=== PATIENT | female | born 1950 | race Caucasian/White ===

== ENCOUNTER 2016-09-25 16:55 | Inpatient (IN) | payer MEDICARE, OTHER ==
[~2016-09-25] VITALS: Ht 154.9 cm; Wt 79.5 kg
[~2016-09-25 16:55] MED LIST: AMLO5TAB4 PO; ASPI81TA3 PO; CARI350T29 PO; ESCI10TA PO; FURO-110 PO; LORA-441 PO; LORA-444 PO; OXYC-279 PO; QUET100T PO; ZIPR80CA9 PO; ZOLP5TAB6 PO
[2016-09-25 16:59] VITALS: Ht 154.9 cm; Wt 79.5 kg
[2016-09-25] MEDS ORDERED: ONDANSETRON 4 MG INJ IV STA (20:19)
[2016-09-25] MEDS ORDERED: morphine 4 MG/ML VIAL IV STA (20:19)
[2016-09-25] MEDS ORDERED: SOD CHLORIDE 0.9% 1,000 ML IV STA (20:19)
[2016-09-25] MEDS ORDERED: QUET200T27 PO (20:52)
[2016-09-25] MEDS ORDERED: ZOLP10TA5 PO (20:53)
[2016-09-25] MEDS ORDERED: BENA40TA41 PO (20:55)
[2016-09-25] MEDS ORDERED: TEMA30CA PO (20:56)
[2016-09-25] MEDS ORDERED: CYCL15CA21 PO (20:58)
[2016-09-25] MEDS ORDERED: ZIPR80CA22 PO (20:58)
[2016-09-25] MEDS ORDERED: LORA-441 PO (21:00)
[2016-09-25] MEDS ORDERED: IMIPENEM-CILAST 500MG IV (PMX) 100 ML IVPB ONE (21:00)
--- NOTE | 2016-09-25 21:01 | ERA ---
ER Documentation Chief Complaint Date/Time DATE: 09/25/16 TIME: 20:56 Chief Complaint BROUGHT IN VIA EMS DUE TO BACK PAIN HPI 65-year-old woman with a history of lumbar spine surgery presents with 2 weeks of increasing back pain. Her PMD ordered an MRI of the back which was concerning for early osteomyelitis of the lumbar spine with adjacent soft tissue swelling. She has had no fevers or chills, no vomiting or diarrhea, no weight loss, no headache or blurry vision. She has been using opioid analgesics at home without relief. ROS All systems reviewed and are negative except as per history of present illness. Medications Home Meds Active Scripts Oxycodone HCl/Acetaminophen (Percocet 5-325 mg Tablet) 1 Each Tablet, 1 EACH PO Q6, #20 TAB Prov:MARVIN MOORE 07/06/16 Furosemide* (Lasix*) 20 Mg Tab, 20 MG PO DAILY, #30 Prov:DESI SALCEDO PROTEIN PURIFICATION SCIENTIST 12/24/14 Reported Medications Lorazepam* (Ativan*) 0.5 Mg Tablet, 0.5 MG PO HS, #30 TAB 09/25/16 Ziprasidone* (Geodon*) 80 Mg Capsule, 80 MG PO QHS, CAP 09/25/16 Temazepam* (Temazepam*) 30 Mg Capsule, 30 MG PO HS Y for INSOMNIA, CAP 09/25/16 Benazepril Hcl* (Benazepril Hcl*) 40 Mg Tablet, 40 MG PO BID, #30 TAB 09/25/16 Quetiapine Fumarate* (Quetiapine Fumarate*) 200 Mg Tablet, 200 MG PO TID, TAB 09/25/16 Discontinued Reported Medications Cyclobenzaprine Hcl (Amrix) 15 Mg Cap.sr.24h, 15 MG PO DAILY, #30 CAP 09/25/16 Zolpidem Tartrate* (Zolpidem Tartrate*) 10 Mg Tablet, 10 MG PO QHS Y for INSOMNIA, #30 TAB 09/25/16 Lorazepam* (Ativan*) 2 Mg Tablet, 2 MG PO TID 10/30/13 Zolpidem Tartrate* (Zolpidem Tartrate*) 5 Mg Tablet, 10 MG PO HS Y for SLEEP 10/30/13 Carisoprodol* (Carisoprodol*) 350 Mg Tablet, 350 MG PO BID 10/30/13 Ziprasidone* (Ziprasidone*) 80 Mg Capsule, 80 MG PO HS 10/30/13 Aspirin* (Aspirin* Chew) 81 Mg Tab.chew, 81 MG PO DAILY, TAB.CHEW 10/30/13 Discontinued Scripts Lorazepam* (Ativan*) 0.5 Mg Tablet, 0.5 MG PO Q8, #10 TAB Prov:SOL FISHER DO 01/01/16 Amlodipine Besylate* (Norvasc*) 5 Mg Tab, 5 MG PO DAILY, #30 Prov:DESI SALCEDO PROTEIN PURIFICATION SCIENTIST 12/24/14 Quetiapine Fumarate* (Seroquel*) 100 Mg Tab, 400 MG PO HS, #30 Prov:DESI SALCEDO PROTEIN PURIFICATION SCIENTIST 12/24/14 Escitalopram Oxalate* (Lexapro*) 10 Mg Tab, 10 MG PO DAILY, #30 Prov:DESI SALCEDO PROTEIN PURIFICATION SCIENTIST 12/24/14 Allergies Allergies: Coded Allergies: Sulfa (Sulfonamide Antibiotics) (Verified Allergy, Unknown, RASH, 09/25/16) erythromycin base (Verified Allergy, Unknown, 09/25/16) PMhx/Soc Right thyroid nodule, hypertension, chronic back pain, chronic obstructive pulmonary disease, prior lumbar disc extrusion post lumbar spine surgery many years ago, obesity History of Surgery: Yes (hysterectomy x 20 years ago,back sx,ex lap, tonsillectomy) Anesthesia Reaction: No Hx Neurological Disorder: No Hx Respiratory Disorders: Yes (copd ) Hx Cardiac Disorders: Yes (htn ) Hx Psychiatric Problems: Yes (anxiety, depression ) Hx Miscellaneous Medical Probl: No Hx Alcohol Use: No Hx Substance Use: No Hx Tobacco Use: Yes Smoking Status: Former smoker FmHx Family History: No diabetes Physical Exam Vitals Vital Signs Date Time Temp Pulse Resp B/P Pulse Ox O2 Delivery O2 Flow Rate FiO2 09/25/16 16:59 98.8 93 18 164/87 97 Physical Exam GENERAL: Well-developed, well-nourished, moderate distress HEENT: Dry mucous membranes, positive soft right thyroid nodule, pink conjunctiva, no cervical spine tenderness or step-off deformities, no goiter, no jaundice or icterus, extraocular movements intact without pain. No submandibular induration, and no pharyngeal erythema NEURO: Alert and oriented 3, cranial nerves II through XII intact bilaterally, pupils equal round reactive to light, no focal deficits or facial asymmetry, sensation intact distally Strength 5/5 in upper and lower extremities bilaterally CARDIAC: Regular rate and rhythm, no murmurs rubs or gallops LUNGS: Clear bilaterally no wheezing crackles or stridor ABDOMEN: Soft nontender, no guarding, no rigidity, no rebound, no psoas sign no obturator sign. Normoactive bowel sounds SKIN: Warm and dry to touch, there is a vertical midline lumbar back cicatrix without skin erythema or induration, no ulcerations noted. No abrasions, contusions, or hematomas, no lacerations, no ecchymosis, no target lesions were observed. EXTREMITIES: No clubbing cyanosis or edema, calves are bilaterally symmetrical, no Homans sign, no popliteal cord sign. Distal pulses equal and bilateral PSYCH: Normal affect without agitation or irritability Result Diagram: 09/25/16205409/25/162054 Results 24 hrs Current Medications Medications (Trade) Dose Ordered Sig/Tano Route PRN Reason Start Time Stop Time Status Last Admin Dose Admin Sodium Chloride (NS) 1,000 ml @ 1,000 mls/hr Q1H STAT IV 09/25/16 20:19 09/25/16 21:18 DC 09/25/16 21:12 Morphine Sulfate (morphine) 4 mg ONCE STAT IV 09/25/16 20:19 09/25/16 20:35 DC 09/25/16 21:11 Ondansetron HCl (Zofran Inj) 4 mg ONCE STAT IV 09/25/16 20:19 09/25/16 20:35 DC 09/25/16 21:11 Procedures/MDM IV line was established patient was placed on front desk monitor rhythm strip revealed a sinus rhythm at about 80 bpm with upright P and T waves. Patient was afebrile. Cultures have been ordered results are pending I will follow-up. EKG performed, read by me revealed a normal sinus rhythm at 70 bpm, normal axis , with a right bundle branch block QRS duration 144 ms, no concerning ST elevations or depressions noted. One AP view of the chest performed, read by me reveals no acute infiltrates, normal mediastinum, sharp costophrenic and cardiac borders, no air under the diaphragm. Otherwise unremarkable chest x-ray. I administered 1 L normal saline intravenously, morphine 4 mg IV, and Zofran 4 mg IV. I administered her first dose of IV antibiotic here in the form of imipenem cilastatin 500 mg IV 1 for possible osteomyelitis of the lumbar spine. CBC was unremarkable, electrolytes revealed dehydration with an increased BUN/ creatinine at 24/1, liver function tests were normal, troponin was negative. Thyroid panel was within normal limits. [facility] under Dr. Morales for continued medical management and further imaging which will be deferred to Dr. Morales Departure Diagnosis: Primary Impression: Osteomyelitis of vertebra, lumbar region Additional Impression: Intractable back pain Condition: SABIHA Armstrong MD Sep 25, 2016 21:01
[2016-09-25 21:11] LABS: BASOPHILS % 0.5 % (0.0-2.0); EOSINOPHILS # 0.2 10^3/ul (0.0-0.5); EOSINOPHILS % 2.6 % (0.0-7.0); HEMATOCRIT 42.2 % (37.0-47.0); HEMOGLOBIN 14.2 g/dl (12.0-16.0); LYMPHOCYTES # 2.3 10^3/ul (0.8-2.9); LYMPHOCYTES % 32.7 % (15.0-51.0); MEAN CORPUSCULAR HGB CONC 33.7 g/dl (32.0-37.0); MEAN PLATELET VOLUME 7.8 fl (7.4-10.4); MONOCYTE # 0.7 10^3/ul (0.3-0.9); NEUTROPHIL # 3.9 10^3/ul (1.6-7.5); NEUTROPHILS % 54.2 % (39.0-77.0); PLATELET COUNT 325 10^3/UL (140-440); RED BLOOD COUNT 4.74 10^6/ul (4.20-5.40); RED CELL DISTRIBUTION WIDTH 14.1 % (11.5-14.5); UNCORRECTED WBC 7.2 10^3/ul (4.8-10.8); WHITE BLOOD COUNT 7.2 10^3/ul (4.8-10.8)
[2016-09-25 21:13] LABS: INR 0.88; PROTIME 11.9 Sec (12.2-14.2); PT RATIO 0.9
[2016-09-25 21:18] LABS: CONDITION 1
--- NOTE | 2016-09-25 21:33 | RADRPT ---
PROCEDURE: XR Chest AP portable CLINICAL INDICATION: Abdominal pain TECHNIQUE: An AP portable radiograph of the chest was submitted. COMPARISON: 03/05/2016 FINDINGS: Support Hardware: None Cardiovascular: The cardiovascular silhouette appears unremarkable. Lung Villegas: The lung villegas have cleared since the previous study with no infiltrate or nodule iden tified. Pleural Spaces: No pneumothorax or pleural effusion is identified. Osseous Structures: The osseous structures appear intact. Soft Tissues: The soft tissues appear unremarkable. IMPRESSION: 1. The lung villegas have cleared 2. Unremarkable portable chest. Physician Nuvia Date Time Electronically viewed and signed by Physician Nuvia on 09/25/2016 21:32 /
[2016-09-25 21:39] VITALS: TEMP 98.2
[2016-09-25 21:42] LABS: CHLORIDE 89 mmol/L (97-110)
[2016-09-25 21:43] LABS: ALBUMIN 4.3 g/dl (3.3-4.9); POTASSIUM 4.1 mmol/L (3.5-5.1); SODIUM 129 mmol/L (135-144)
[2016-09-25 21:46] LABS: ALANINE AMINOTRANSFERASE 22 IU/L (13-69); ALBUMIN/GLOBULIN RATIO 1.22; ALKALINE PHOSPHATASE 116 IU/L (42-121); ANION GAP 15 (8-16); ASPARTATE AMINO TRANSFERASE 24 IU/L (15-46); BLOOD UREA NITROGEN 24 mg/dl (7-20); CARBON DIOXIDE 29 mmol/L (21-31); CREATININE 0.95 mg/dl (0.44-1.00); GLUCOSE 99 mg/dl (70-220); TOTAL PROTEIN 7.8 g/dl (6.1-8.1)
[2016-09-25 22:04] LABS: FREE T3 4.03 pg/ml (2.77-5.27)
[2016-09-25 22:06] LABS: TROPONIN-I < 0.012 ng/ml (0.00-0.12)
[2016-09-25 22:30] VITALS: BP 165/95; PULSE 76; RESP 18
[2016-09-26] MEDS ORDERED: VANCOMYCIN IV PER PHARMACY XX SCH
[2016-09-26] MEDS ORDERED: ACETAMINOPHEN 325 MG TAB PO PRN
[2016-09-26] MEDS ORDERED: ALBUTEROL/IPRATROPIUM (NEB) 3 ML AMP HHN PRN
[2016-09-26] MEDS ORDERED: OXYCODONE/ACETAMINOPHEN (5/325) TAB PO PRN
[2016-09-26] MEDS: SENNA TAB PO SCH ×3 (00:24→22:23)
[2016-09-26] MEDS: BENAZEPRIL 40 MG TAB PO SCH ×3 (00:25→22:22)
[2016-09-26] MEDS: ZIPRASIDONE 20 MG CAP PO SCH ×3 (00:57→22:23)
[2016-09-26] MEDS: QUETIAPINE 100 MG TAB PO SCH ×2 (00:57→22:21)
[2016-09-26] MEDS ORDERED: VANCOMYCIN 1.75 GM in NS 500 ML IVPB SCH (01:00)
[2016-09-26] MEDS: IMIPENEM-CILAST 500MG IV (PMX) 100 ML IVPB SCH ×4 (01:01→17:15)
[2016-09-26] MEDS ORDERED: IMIPENEM/CILASTATIN 500 MG in SOD CHLORIDE 0.9% 250 ML IVPB SCH (02:00)
[2016-09-26] MEDS: HYDROmorphONE 1 MG/ML SYG IV PRN ×4 (02:15→16:22)
[2016-09-26 08:02] VITALS: BP 169/92; RESP 16
--- NOTE | 2016-09-26 13:24 | HP ---
DATE OF ADMISSION: 09/25/2016 CHIEF COMPLAINT: Back pain. HISTORY OF PRESENT ILLNESS: The patient is a 65-year-old female with past medical history positive for bipolar disorder, COPD, tobacco dependence, chronic back pain with prior lumbar disk surgery man y years ago, obesity, hypertension. The patient was seen in the office of primary care physician rae theodore underwent an MRI which showed a possible disk space infection and adjacent osteomyelitis of the luis mbar spine. The patient was also with increased lower back pain over the last couple of weeks, and the patient was sent to the emergency room for further evaluation and management. The patient denie s any fever, chills, denies any nausea, vomiting. The patient denies headache. Denies blurry visio n. The patient denies any chest pain, denies shortness of breath. The patient stated that she uses oxygen at home for her COPD, and the patient also stated that she quit smoking 3 days ago. The pat ient did not have any leukocytosis. No fever on admission to the emergency room. Chest x-ray with impression of clear lung villegas, unremarkable portable chest. The patient was started on vancomycin , imipenem, cilastatin for possible osteomyelitis of the lumbar spine. The patient was also given m orphine and Zofran in the emergency room and admitted for further evaluation and management to medic al/surgical floor. PAST MEDICAL HISTORY: Per HPI. PAST SURGICAL HISTORY: Status post lumbar spine surgery x2, status post tonsillectomy, status post hysterectomy 20 years ago. FAMILY HISTORY: Noncontributory. SOCIAL HISTORY: The patient lives at home, has a machine filler shredder. The patient is a smoker for many years , usually smokes 1 pack of cigarettes a day. The patient stated that she quit 3 days ago. The trang ent drinks alcohol occasionally, stated maybe once in a couple of months, drinks wine. Denies any i llicit drug use. ALLERGIES: THE PATIENT IS ALLERGIC TO [place] 1. SULFONAMIDE ANTIBIOTICS. 2. ERYTHROMYCIN. MEDICATIONS ON ADMISSION: 1. Benazepril. 2. Lasix. 3. Ativan. 4. [place]. 5. . 6. Geodon. 7. Temazepam. REVIEW OF SYSTEMS: A 12-point review of systems is negative unless what is mentioned in the HPI. PHYSICAL EXAMINATION: GENERAL: Well-developed, obese female, currently is awake, alert. VITAL SIGNS: Temperature is 97.6, pulse is 86, blood pressure 169/92, respiratory rate 16, oxygen s aturation 93% on room air. HEENT: Head is atraumatic, normocephalic. Pupils equal, round, reactive to light and accommodation . Oral mucosa is pink and moist. NECK: Supple, no cervical lymphadenopathy, no thyromegaly. CHEST: Lungs clear bilaterally. There is no rhonchi, wheezes, rales noted. CARDIOVASCULAR: Normal S1, S2. No murmurs, gallops, clicks, rubs noted. ABDOMEN: Protuberant, soft, nondistended, nontender. Bowel sounds present. There is no guarding, no rebound tenderness. EXTREMITIES: No edema, clubbing, cyanosis. Pulses equal bilaterally 2+. SKIN: There is no rash, petechiae noted. NEUROLOGIC: The patient is awake, alert and oriented x4. No focal deficits noted. Motor strength is 5/5 in all extremities. LABORATORY DATA: On admission, CBC: White blood cell 7.2, hemoglobin 14.2, hematocrit 42.2, platel ets 325. Chemistry: Sodium is 129, potassium 4.1, chloride 89, carbon dioxide 29, anion gap 15, BU N is 24, creatinine 0.95, glucose 99. AST is 24, ALT is 22, alkaline phosphatase 116, troponin less than 0.012. ASSESSMENT AND PLAN: 1. Possible osteomyelitis and disk space infection of lumbar region. Continue patient on broad-spe ctrum antibiotics. Dr. Patterson is asked to see patient in infectious disease consultation. We will obtain a CT of the lumbar spine for further evaluation. Continue pain medication. 2. Status post lumbar spine surgery x2 with chronic back pain. 3. Bipolar disorder. 4. Chronic obstructive pulmonary disease. Will continue breathing treatment p.r.n. for shortness o f breath. 5. Hypertension. Continue patient on benazepril. 6. Bipolar disorder. 7. Hyponatremia. Continue to monitor electrolytes. 8. We will continue sequential compression device for deep venous thrombosis prophylaxis and Pepcid for peptic ulcer disease prophylaxis. Further recommendations based on clinical course. Plan of care discussed with Dr. Vigil. Dictated By: YENNY SALDAÑA STORE MERCHANDISER for GERALD VIGIL MD SR/NTS Conf#: [id number] [facility]#: [id number]
[2016-09-26] MEDS: VANCOMYCIN 750 MG in SOD CHLORIDE 0.9% 150 ML IVPB SCH (13:41)
[2016-09-26 15:22] LABS: BASOPHILS % 0.4 % (0.0-2.0); EOSINOPHILS # 0.1 10^3/ul (0.0-0.5); EOSINOPHILS % 0.8 % (0.0-7.0); HEMATOCRIT 44.1 % (37.0-47.0); HEMOGLOBIN 14.6 g/dl (12.0-16.0); LYMPHOCYTES # 1.6 10^3/ul (0.8-2.9); LYMPHOCYTES % 20.3 % (15.0-51.0); MEAN CORPUSCULAR HEMOGLOBIN 29.8 pg (29.0-33.0); MEAN CORPUSCULAR HGB CONC 33.1 g/dl (32.0-37.0); MEAN CORPUSCULAR VOLUME 90.1 fl (82.0-101.0); MEAN PLATELET VOLUME 7.6 fl (7.4-10.4); MONOCYTE # 0.7 10^3/ul (0.3-0.9); MONOCYTES % 9.4 % (0.0-11.0); NEUTROPHIL # 5.5 10^3/ul (1.6-7.5); NEUTROPHILS % 69.1 % (39.0-77.0); PLATELET COUNT 348 10^3/UL (140-440); RED CELL DISTRIBUTION WIDTH 14.4 % (11.5-14.5); UNCORRECTED WBC 7.9 10^3/ul (4.8-10.8); WHITE BLOOD COUNT 7.9 10^3/ul (4.8-10.8)
[2016-09-26 15:25] LABS: CONDITION 1
[2016-09-26 15:32] LABS: ALBUMIN 4.1 g/dl (3.3-4.9)
[2016-09-26 15:35] LABS: ALBUMIN/GLOBULIN RATIO 1.17; BILIRUBIN,INDIRECT 0.1 mg/dl (0-1.1); BILIRUBIN,TOTAL 0.1 mg/dl (0.2-1.3); CREATININE 0.98 mg/dl (0.44-1.00); TOTAL PROTEIN 7.6 g/dl (6.1-8.1)
[2016-09-26] MEDS: LORAZEPAM 1 MG TAB PO PRN (17:35)
[2016-09-26 20:00] VITALS: BP 171/85; PULSE 90; RESP 18
[2016-09-26 20:11] VITALS: BP 171/85; RESP 18
[2016-09-26] MEDS ORDERED: ZOLPIDEM 5 MG TAB PO PRN ×2 (21:30)
--- NOTE | 2016-09-27 00:15 | RADRPT ---
PROCEDURE: CT L-Spine. CLINICAL INDICATION: r/o disc space infection, osteo L1-L2 TECHNIQUE: A CT of the lumbar spine was performed on a CT scanner utilizing high-resolution thin s ection axial images from the thoracic lumbar junction through the lumbar sacral junction. Sagittal and coronal and multiplanar reformatted images were made.The CTDIvol is 48.44 mGy and the DLP is 137 0.92 mGycm. One or more of the following dose reduction techniques were utilized: Automated exposur e control, adjustment of the mA and/or kV according to patient size, use of iterative reconstruction technique. COMPARISON: None. FINDINGS: The vertebral bodies are grossly normal height with the upper lungs demonstrate preservation of disk height with disk protrusion or stenosis. Posterior fusion rods with transpedicular screws in place from L2-S1. Decompression laminectomies of L2 through L3-L4 with extensive postoperative changes of midline posterior soft tissues. Marked demineralization of the L3, L4, and L5 vertebrae and sacrum . T12-L1: The disk is normal in height. No disk protrusion or stenosis. L1-2: Severe disk space narrowing with subchondral cystic degenerative changes of the endplates with extensive subchondral sclerosis. Diskitis and osteomyelitis can have a similar appearance. Promine nt anterior osteophyte formation circumferential disk bulging. There is vacuum disk formation and a n area of gas within the right epidural space extending craniad frontal the disk space in the right subarticular region measuring approximately 5.3 x 0.2 x 2.4 cm in transverse, AP, craniocaudal dimen sions respectively.. This may represent gas within the disk extrusion , however, epidural abscess c annot be excluded. The study is limited due to lack of intravenous contrast. Severe bilateral fora shivam stenosis right greater than left. L2-3: Severe disk space narrowing, subchondral sclerosis and subchondral cystic degenerative change with anterior and posterior endplate spurring. 7 mm of anterolisthesis of L2-L3. Circumferential dis k bulging and marked bilateral facet joint arthropathy resulting in severe bilateral foraminal steno sis. There is lucency surrounding the transpedicular screws bilaterally right greater than left com patible with osteolysis. The hardware is otherwise intact. L3-4: Mild loss of disk height and moderate circumferential disk bulging. Posterior spondylitic ridg ing and endplate spurring. Intact transpedicular screws. Moderate to severe right foraminal stenosi s without left foraminal stenosis. L4-5: Findings compatible with discectomy and interbody fusion. 2-3 mm of anterolisthesis of L4 on L5 with posterior spondylitic ridging . No disk protrusion or foraminal stenosis. Intact transpedi cular screws. L5-S1: Findings compatible with discectomy and interbody fusion. Marked posterior spondylitic ridgin g and foraminal disk osteophyte complexes resulting in moderate to severe left and moderate right fo raminal stenosis. IMPRESSION: 1. Severe disk space narrowing, subchondral cystic degenerative changes of the inferior endplate of superior endplate of L2 with extensive surrounding sclerosis. Although this may reflect extensive c hronic degenerative change, superimposed diskitis and osteomyelitis cannot be excluded. Vacuum disk formation with gas extending to the right subarticular epidural space with craniad extension measur ing 5.3 x 0.2 x 2.4 cm in size. Although this may reflect extruded gas containing disk material, ep idural abscess cannot be excluded. The study is extremely limited due to lack of intravenous contra st. Correlate with clinical presentation. 2. Extensive postoperative changes compatible with posterior lumbar fusion of L2-S1 as described in detail above. 3. Results were discussed with the patient's nurse Louisa Blanchard 09/27/2016 12:10:27 AM . RPTAT:AAJJ Physician Noreen Date Time Electronically viewed and signed by Physician Noreen on 09/27/2016 00:15 TRISHA/
[2016-09-27] MEDS: IMIPENEM-CILAST 500MG IV (PMX) 100 ML IVPB SCH ×5 (00:55→23:44)
[2016-09-27] MEDS: VANCOMYCIN 750 MG in SOD CHLORIDE 0.9% 150 ML IVPB SCH ×2 (02:10→14:20)
[2016-09-27 06:08] LABS: BASOPHILS % 0.4 % (0.0-2.0); EOSINOPHILS # 0.1 10^3/ul (0.0-0.5); HEMATOCRIT 46.2 % (37.0-47.0); HEMOGLOBIN 15.4 g/dl (12.0-16.0); LYMPHOCYTES # 1.8 10^3/ul (0.8-2.9); LYMPHOCYTES % 20.7 % (15.0-51.0); MEAN CORPUSCULAR HEMOGLOBIN 30.2 pg (29.0-33.0); MEAN CORPUSCULAR HGB CONC 33.3 g/dl (32.0-37.0); MEAN CORPUSCULAR VOLUME 90.5 fl (82.0-101.0); MEAN PLATELET VOLUME 7.9 fl (7.4-10.4); MONOCYTE # 0.7 10^3/ul (0.3-0.9); MONOCYTES % 8.2 % (0.0-11.0); NEUTROPHILS % 69.7 % (39.0-77.0); PLATELET COUNT 327 10^3/UL (140-440); RED CELL DISTRIBUTION WIDTH 14.2 % (11.5-14.5); UNCORRECTED WBC 8.7 10^3/ul (4.8-10.8); WHITE BLOOD COUNT 8.7 10^3/ul (4.8-10.8)
[2016-09-27 06:22] LABS: POTASSIUM 4.6 mmol/L (3.5-5.1)
[2016-09-27 06:23] LABS: CONDITION 1
[2016-09-27 06:25] LABS: CREATININE 0.88 mg/dl (0.44-1.00)
[2016-09-27 06:26] LABS: CALCIUM 9.6 mg/dl (8.4-10.2)
[2016-09-27] MEDS: SENNA TAB PO SCH ×2 (08:16→20:36)
[2016-09-27] MEDS: HYDROmorphONE 1 MG/ML SYG IV PRN ×2 (08:16→12:36)
[2016-09-27] MEDS: ZIPRASIDONE 20 MG CAP PO SCH ×2 (08:16→20:36)
[2016-09-27 08:29] VITALS: BP 188/100; RESP 20
[2016-09-27] MEDS: BENAZEPRIL 40 MG TAB PO SCH ×2 (08:33→20:37)
[2016-09-27] MEDS ORDERED: INFLUENZA VIRUS VACCINE 0.5 ML (DISPENSING) IM* ONE (09:00)
--- NOTE | 2016-09-27 10:09 | CONS ---
Date/Time of Note Date/Time of Note DATE: 09/27/16 TIME: 10:08 Assessment/Plan Assessment/Plan Additional Assessment/Plan asked to consult will be in shortly. Consultation Date/Type/Reason Admit Date/Time Sep 25, 2016 at 20:35 Initial Consult Date 24 HR Interval Summary Free Text/Dictation asked to consult. will be in shortly. Exam/Review of Systems Vital Signs Vitals Vital Signs Date Time Temp Pulse Resp B/P Pulse Ox O2 Delivery O2 Flow Rate FiO2 09/27/16 08:29 98.8 100 20 188/100 96 09/26/16 20:00 Room Air Intake and Output 09/26/16 09/26/16 09/27/16 15:00 23:00 07:00 Intake Total 317.67 ml 1860 ml 1050 ml Balance 317.67 ml 1860 ml 1050 ml Results Result Diagram: 09/27/16 0515 09/27/16 0515 Results 24 hrs Laboratory Tests Test 09/26/16 15:06 09/27/16 05:15 Alanine Aminotransferase (ALT/SGPT) 19 Albumin 4.1 Albumin/Globulin Ratio 1.17 Alkaline Phosphatase 102 Anion Gap 14 13 Aspartate Amino Transf (AST/SGOT) 20 Basophils # 0.0 0.0 Basophils % 0.4 0.4 Blood Urea Nitrogen 21 H 17 Calcium Level 9.0 9.6 Carbon Dioxide Level 29 29 Chloride Level 100 # 102 Creatinine 0.98 0.88 Direct Bilirubin 0.00 Eosinophils # 0.1 0.1 Eosinophils % 0.8 1.0 Erythrocyte Sedimentation Rate 10 Globulin 3.50 H Glucose Level 116 96 Hematocrit 44.1 46.2 Hemoglobin 14.6 15.4 Indirect Bilirubin 0.1 Lymphocytes # 1.6 1.8 Lymphocytes % 20.3 20.7 Mean Corpuscular Hemoglobin 29.8 30.2 Mean Corpuscular Hemoglobin Concent 33.1 33.3 Mean Corpuscular Volume 90.1 90.5 Mean Platelet Volume 7.6 7.9 Monocytes # 0.7 0.7 Monocytes % 9.4 8.2 Neutrophils # 5.5 6.0 Neutrophils % 69.1 69.7 Nucleated Red Blood Cells # 0.0 0.0 Nucleated Red Blood Cells % 0.0 0.0 Platelet Count 348 327 Potassium Level 4.0 4.6 Red Blood Count 4.90 5.10 Red Cell Distribution Width 14.4 14.2 Sodium Level 139 139 Total Bilirubin 0.1 L Total Protein 7.6 White Blood Count 7.9 8.7 Medications Medications Current Medications Acetaminophen (Tylenol Tab) 650 mg Q4H PRN PO PAIN AND OR ELEVATED TEMP; Start 09/26/16 at 00:00 Lorazepam (Ativan) 1 mg Q6H PRN PO ANXIETY Last administered on 09/26/16 17:35 ; Admin Dose 1 MG; Start 09/26/16 at 00:00 Hydromorphone HCl (Dilaudid) 0.5 mg Q4H PRN IV PAIN Last administered on 08:16; Admin Dose 0.5 MG; Start 09/26/16 at 00:00 Senna (Senokot) 2 tab BID PO Last administered on 09/27/16 08:16; Admin Dose 2 TAB; Start 09/26/16 at 00:00 Ziprasidone (Geodon) 80 mg BID PO Last administered on 09/27/16 08:16; Admin Dose 80 MG; Start 09/26/16 at 00:00 Quetiapine Fumarate (Seroquel) 200 mg HS PO Last administered on 09/26/16 22: 21; Admin Dose 200 MG; Start 09/26/16 at 00:30 Benazepril HCl (Lotensin) 40 mg BID PO Last administered on 09/27/16 08:33; Admin Dose 40 MG; Start 09/26/16 at 00:00 Oxycodone/ Acetaminophen 1 tab 1 tab Q4H PRN PO PAIN; Start 09/26/16 at 00:00 Imipenem/ Cilastatin Sodium 100 ml @ 166.667 mls/hr Q6 IVPB Last administered on 09/27/16 05:22; Admin Dose 166.667 MLS/HR; Start 09/26/16 at 02:00 Vancomycin HCl/ Sodium Chloride (Vancocin/NS) 150 ml @ 75 mls/hr Q12H IVPB Last administered on 09/27/16 02:10; Admin Dose 75 MLS/HR; Start 09/26/16 at 14 :00 Miscellaneous Information (*Rx Drug Level Order Reminder*) VANCO TROUGH @ 1, 300 ON... ONCE ONCE XX ; Start 09/27/16 at 13:00; Stop 09/27/16 at 13:01 SHANAE PENN MD Sep 27, 2016 10:09
[2016-09-27] MEDS: LORAZEPAM 1 MG TAB PO PRN ×2 (10:29→18:02)
[2016-09-27 10:30] VITALS: BP 177/99; RESP 19
--- NOTE | 2016-09-27 10:36 | CONS ---
Date/Time of Note Date/Time of Note DATE: 09/27/16 TIME: 10:35 Assessment/Plan Assessment/Plan Chief Complaint/Hosp Course dictated Problems: Consultation Date/Type/Reason Admit Date/Time Sep 25, 2016 at 20:35 Exam/Review of Systems Vital Signs Vitals Vital Signs Date Time Temp Pulse Resp B/P Pulse Ox O2 Delivery O2 Flow Rate FiO2 09/27/16 08:29 98.8 100 20 188/100 96 09/26/16 20:00 Room Air Intake and Output 09/26/16 09/26/16 09/27/16 15:00 23:00 07:00 Intake Total 317.67 ml 1860 ml 1050 ml Balance 317.67 ml 1860 ml 1050 ml Results Result Diagram: 09/27/16 0515 09/27/16 0515 Results 24 hrs Laboratory Tests Test 09/26/16 15:06 09/27/16 05:15 Alanine Aminotransferase (ALT/SGPT) 19 Albumin 4.1 Albumin/Globulin Ratio 1.17 Alkaline Phosphatase 102 Anion Gap 14 13 Aspartate Amino Transf (AST/SGOT) 20 Basophils # 0.0 0.0 Basophils % 0.4 0.4 Blood Urea Nitrogen 21 H 17 Calcium Level 9.0 9.6 Carbon Dioxide Level 29 29 Chloride Level 100 # 102 Creatinine 0.98 0.88 Direct Bilirubin 0.00 Eosinophils # 0.1 0.1 Eosinophils % 0.8 1.0 Erythrocyte Sedimentation Rate 10 Globulin 3.50 H Glucose Level 116 96 Hematocrit 44.1 46.2 Hemoglobin 14.6 15.4 Indirect Bilirubin 0.1 Lymphocytes # 1.6 1.8 Lymphocytes % 20.3 20.7 Mean Corpuscular Hemoglobin 29.8 30.2 Mean Corpuscular Hemoglobin Concent 33.1 33.3 Mean Corpuscular Volume 90.1 90.5 Mean Platelet Volume 7.6 7.9 Monocytes # 0.7 0.7 Monocytes % 9.4 8.2 Neutrophils # 5.5 6.0 Neutrophils % 69.1 69.7 Nucleated Red Blood Cells # 0.0 0.0 Nucleated Red Blood Cells % 0.0 0.0 Platelet Count 348 327 Potassium Level 4.0 4.6 Red Blood Count 4.90 5.10 Red Cell Distribution Width 14.4 14.2 Sodium Level 139 139 Total Bilirubin 0.1 L Total Protein 7.6 White Blood Count 7.9 8.7 Medications Medications Current Medications Acetaminophen (Tylenol Tab) 650 mg Q4H PRN PO PAIN AND OR ELEVATED TEMP; Start 09/26/16 at 00:00 Lorazepam (Ativan) 1 mg Q6H PRN PO ANXIETY Last administered on 09/27/16 10:29 ; Admin Dose 1 MG; Start 09/26/16 at 00:00 Hydromorphone HCl (Dilaudid) 0.5 mg Q4H PRN IV PAIN Last administered on 08:16; Admin Dose 0.5 MG; Start 09/26/16 at 00:00 Senna (Senokot) 2 tab BID PO Last administered on 09/27/16 08:16; Admin Dose 2 TAB; Start 09/26/16 at 00:00 Ziprasidone (Geodon) 80 mg BID PO Last administered on 09/27/16 08:16; Admin Dose 80 MG; Start 09/26/16 at 00:00 Quetiapine Fumarate (Seroquel) 200 mg HS PO Last administered on 09/26/16 22: 21; Admin Dose 200 MG; Start 09/26/16 at 00:30 Benazepril HCl (Lotensin) 40 mg BID PO Last administered on 09/27/16 08:33; Admin Dose 40 MG; Start 09/26/16 at 00:00 Oxycodone/ Acetaminophen 1 tab 1 tab Q4H PRN PO PAIN; Start 09/26/16 at 00:00 Imipenem/ Cilastatin Sodium 100 ml @ 166.667 mls/hr Q6 IVPB Last administered on 09/27/16 05:22; Admin Dose 166.667 MLS/HR; Start 09/26/16 at 02:00 Vancomycin HCl/ Sodium Chloride (Vancocin/NS) 150 ml @ 75 mls/hr Q12H IVPB Last administered on 09/27/16 02:10; Admin Dose 75 MLS/HR; Start 09/26/16 at 14 :00 Miscellaneous Information (*Rx Drug Level Order Reminder*) VANCO TROUGH @ 1, 300 ON... ONCE ONCE XX ; Start 09/27/16 at 13:00; Stop 09/27/16 at 13:01 SHANAE PENN MD Sep 27, 2016 10:36
--- NOTE | 2016-09-27 11:04 | CONS ---
DATE OF ADMISSION: 09/25/2016 DATE OF CONSULTATION: 09/27/2016 TIME: 10:32 a.m. REASON FOR CONSULTATION: Possible diskitis, osteomyelitis. CONSULTING PHYSICIAN: Dr. Morales and nurse practitioner Jessica Nelson. HISTORY OF PRESENT ILLNESS: I would like to thank the aforementioned practitioners for consulting u s on this patient and allowing us to participate in her care. This is a 63-year-old female with kno wn past medical history of bipolar disorder, COPD, tobacco dependence, chronic low back pain and marilyn or lumbar disk surgery approximately 5 years ago at [facility]. She notes that she had previous s urgery at [facility] also within the last 2 to 3 years with hardware placement for chronic back pa in. The patient has been complaining of back pain off and on for the last year. No fevers and rece ntly apparently was seen in the outpatient setting. There is a report that she had an outpatient MR I which we do not have a copy of at this time. The patient was admitted, had a CT scan without cont rast, suggestive of possible diskitis and/or osteomyelitis. She has been placed on empiric vancomyc in and imipenem. We have been asked to comment. She currently denies fevers, chills, night sweats, nausea, vomiting, or diarrhea. No abdominal pain. No chest pain or shortness of breath. She does have some mild low back pain. PAST MEDICAL HISTORY: COPD, tobacco dependence, chronic back pain. PAST SURGICAL HISTORY: Disk surgeries as described, tonsillectomy and a hysterectomy 20 years ago. FAMILY HISTORY: Noncontributory. SOCIAL HISTORY: She does smoke cigarettes. Denies alcohol or drug use. ALLERGIES: LISTED ALLERGIES ARE: 1. SULFA. 2. ERYTHROMYCIN. CURRENT MEDICATIONS: 1. Vancomycin. 2. Imipenem 3. Seroquel. Rest of medication list has been reviewed. PHYSICAL EXAMINATION: VITAL SIGNS: She is currently afebrile. Temperature is 98.8, blood pressure 180/100, pulse is 100, respiratory rate 20, pulse ox 96% on room air. GENERAL: She appears in no apparent distress. HEAD AND NECK: Examination nonfocal. LUNGS: Clear. ABDOMEN: Soft. BACK: Mild tenderness in the lumbar area, otherwise nonfocal. No erythema or cellulitic changes. LABORATORY DATA: White blood cell count 8.7, hemoglobin 15.4, hematocrit 46.2, platelets of 327. C hemistry was reviewed. BUN 17, creatinine 0.88, sodium 139, potassium 4.6. Hematology coags review ed. MICROBIOLOGY STUDIES: Reviewed. Medication list as mentioned. IMAGING STUDIES: Reviewed. CT lumbar spine revealed severe disk space narrowing, subchondral cysti c degenerative changes of the inferior endplate of the superior endplate of L2 with extensive surrou nding sclerosis. There is also extensive chronic degenerative change superimposed diskitis and osteo myelitis could not be excluded, vacuum disk formation with gas into the right subarticular epidural space with chorionic extension measuring 5.3 x 2.0 x 2.4. ASSESSMENT: Possible osteomyelitis, diskitis versus chronic degenerative changes which seems more l ikely given her low ESR and lack of fevers. RECOMMENDATIONS: 1. HIV testing. 2. Consider CT scan with contrast. 3. Consider neurosurgical evaluation. 4. Obtain outpatient MRI. We will review imaging with radiology. We will continue to follow her closely with you. We will check a procalcitonin, lactic acid and CRP. Thank you very much for consulting. Dictated By: SHANAE PENN MD /NTS Conf#: [id number] DID#: [id number]
[2016-09-27 11:05] VITALS: BP 160/86; RESP 18
--- NOTE | 2016-09-27 17:43 | PN ---
Date/Time of Note Date/Time of Note DATE: 09/27/16 TIME: 17:39 Assessment/Plan VTE Prophylaxis VTE Prophylaxis Intervention: SCD's Lines/Catheters IV Catheter Type (from Nrsg): Saline Lock Assessment/Plan Chief Complaint/Hosp Course ASSESSMENT AND PLAN: 1. Possible osteomyelitis and disk space infection of lumbar region. Continue patient on broad-spectrum antibiotics. Dr. Patterson is following in infectious disease consultation. Dr. Head, orthopedic surgery consult requested. Continue pain medication. 2. Status post lumbar spine surgery x2 with chronic back pain. 3. Bipolar disorder. 4. Chronic obstructive pulmonary disease. Continue breathing treatment p.r.n. for shortness of breath. 5. Hypertension. Continue patient on benazepril. 6. Tobacco dependence. Start nicotine patch. 7. Hyponatremia. Continue to monitor electrolytes. Continue sequential compression device for deep venous thrombosis prophylaxis and Pepcid for peptic ulcer disease prophylaxis. Further recommendations based on clinical course. Plan of care discussed with Dr. Morales. Problems: Subjective 24 Hr Interval Summary Free Text/Dictation Pain is well controlled, patient's wants to go home, explained the reason for hospitalization to patient and the patient's sister at the bedside, patient agreed to nicotine patch Exam/Review of Systems Vital Signs Vitals Vital Signs Date Time Temp Pulse Resp B/P Pulse Ox O2 Delivery O2 Flow Rate FiO2 09/27/16 11:05 18 160/86 09/27/16 08:29 98.8 100 96 09/26/16 20:00 Room Air Intake and Output 09/26/16 09/26/16 09/27/16 15:00 23:00 07:00 Intake Total 317.67 ml 1860 ml 1050 ml Balance 317.67 ml 1860 ml 1050 ml Exam GENERAL: Well-developed, obese female, currently is awake, alert. HEENT: Head is atraumatic, normocephalic. NECK: Supple, no cervical lymphadenopathy, no thyromegaly. CHEST: Lungs clear bilaterally. There is no rhonchi, wheezes, rales noted. CARDIOVASCULAR: Normal S1, S2. No murmurs, gallops, clicks, rubs noted. ABDOMEN: Protuberant, soft, nondistended, nontender. Bowel sounds present. EXTREMITIES: No edema, clubbing, cyanosis. Pulses equal bilaterally 2+. SKIN: There is no rash, petechiae noted. NEUROLOGIC: The patient is awake, alert and oriented x4. Results Result Diagram: 09/27/16 0515 09/27/16 0515 Results 24 hrs Laboratory Tests Test 09/27/16 05:15 09/27/16 11:25 09/27/16 12:45 Anion Gap 13 Basophils # 0.0 Basophils % 0.4 Blood Urea Nitrogen 17 Calcium Level 9.6 Carbon Dioxide Level 29 Chloride Level 102 Creatinine 0.88 Eosinophils # 0.1 Eosinophils % 1.0 Glucose Level 96 Hematocrit 46.2 Hemoglobin 15.4 Lymphocytes # 1.8 Lymphocytes % 20.7 Mean Corpuscular Hemoglobin 30.2 Mean Corpuscular Hemoglobin Concent 33.3 Mean Corpuscular Volume 90.5 Mean Platelet Volume 7.9 Monocytes # 0.7 Monocytes % 8.2 Neutrophils # 6.0 Neutrophils % 69.7 Nucleated Red Blood Cells # 0.0 Nucleated Red Blood Cells % 0.0 Platelet Count 327 Potassium Level 4.6 Red Blood Count 5.10 Red Cell Distribution Width 14.2 Sodium Level 139 White Blood Count 8.7 C-Reactive Protein < 0.5 HIV (1&2) Antibody NEGATIVE Lactic Acid Level 1.9 Vancomycin Level Trough 12.6 Medications Medications Current Medications Acetaminophen (Tylenol Tab) 650 mg Q4H PRN PO PAIN AND OR ELEVATED TEMP; Start 09/26/16 at 00:00 Lorazepam (Ativan) 1 mg Q6H PRN PO ANXIETY Last administered on 09/27/16 10:29 ; Admin Dose 1 MG; Start 09/26/16 at 00:00 Hydromorphone HCl (Dilaudid) 0.5 mg Q4H PRN IV PAIN Last administered on 12:36; Admin Dose 0.5 MG; Start 09/26/16 at 00:00 Senna (Senokot) 2 tab BID PO Last administered on 09/27/16 08:16; Admin Dose 2 TAB; Start 09/26/16 at 00:00 Ziprasidone (Geodon) 80 mg BID PO Last administered on 09/27/16 08:16; Admin Dose 80 MG; Start 09/26/16 at 00:00 Quetiapine Fumarate (Seroquel) 200 mg HS PO Last administered on 09/26/16 22: 21; Admin Dose 200 MG; Start 09/26/16 at 00:30 Benazepril HCl (Lotensin) 40 mg BID PO Last administered on 09/27/16 08:33; Admin Dose 40 MG; Start 09/26/16 at 00:00 Oxycodone/ Acetaminophen 1 tab 1 tab Q4H PRN PO PAIN; Start 09/26/16 at 00:00 Imipenem/ Cilastatin Sodium 100 ml @ 166.667 mls/hr Q6 IVPB Last administered on 09/27/16 11:28; Admin Dose 166.667 MLS/HR; Start 09/26/16 at 02:00 Vancomycin HCl (Vancocin) 250 ml @ 125 mls/hr Q12H IVPB ; Start 09/28/16 at 02: 00 Nicotine (Nicoderm 21 Mg/ 24hr) 1 patch DAILY TRANSDERM ; Start 09/27/16 at 17: 00 YENNY SALDAÑA Sep 27, 2016 17:43
--- NOTE | 2016-09-27 17:46 | CONS ---
Date/Time of Note Date/Time of Note DATE: 09/27/16 TIME: 17:37 Assessment/Plan Assessment/Plan Additional Assessment/Plan history of extensive posterior L2-S1 rods/ screws with [facility] Pt with increasing LBP x 1 year and now complaining of RLE radic pain. Surgical site warm to touch CT Lspine showed previously placed hardware and likely L1-2 osteo/diskitis MRI Lspine report from outside facility reviewed and noted but need actual films for review Plan Agree with IV antibiotics pain management MRI Lspine w/wo contrast Finalize recs once studies completed Discussed plan with pt and family at bedside d/w Dr. Head Consultation Date/Type/Reason Admit Date/Time Sep 25, 2016 at 20:35 Date of Consultation: Sep 27, 2016 Type of Consultation: Neurosurgery Reason for Consultation Possible Osteo/diskitis LBP x 1 year with RLE radic Hx of Present Illness 65 y/o female with history extensive posterior lumbar fusion with Rods/Screws x [address] @ [facility]. Pt with increasing LBP with worsening RLE radic pain. Pt states back pain worse with standing and has some mild relief with lying flat. CT Lspine confirmed previously placed screws/rods and likely L1-2 osteo/ diskitis. Outside MRI report in chart but NO actual CD or disc for review. pmh/psx: per hpi/chart Social History Smoking Status: Former smoker Exam/Review of Systems Vital Signs Vitals Vital Signs Date Time Temp Pulse Resp B/P Pulse Ox O2 Delivery O2 Flow Rate FiO2 09/27/16 11:05 18 160/86 09/27/16 08:29 98.8 100 96 09/26/16 20:00 Room Air Intake and Output 09/26/16 09/26/16 09/27/16 15:00 23:00 07:00 Intake Total 317.67 ml 1860 ml 1050 ml Balance 317.67 ml 1860 ml 1050 ml Exam Constitutional: alert Head: normocephalic Respiratory: clear to auscultation Cardiovascular: regular rate and rhythm Neurological: other (MS: AAOX4 CN: III-XII M: FC x 4 , 5/5 strength bilat UE/LLE, 5-/5 RLE S: Left L1-2 derm level radic. ) Results Result Diagram: 09/27/16 0515 09/27/16 0515 Results 24 hrs Laboratory Tests Test 09/27/16 05:15 09/27/16 11:25 09/27/16 12:45 Anion Gap 13 Basophils # 0.0 Basophils % 0.4 Blood Urea Nitrogen 17 Calcium Level 9.6 Carbon Dioxide Level 29 Chloride Level 102 Creatinine 0.88 Eosinophils # 0.1 Eosinophils % 1.0 Glucose Level 96 Hematocrit 46.2 Hemoglobin 15.4 Lymphocytes # 1.8 Lymphocytes % 20.7 Mean Corpuscular Hemoglobin 30.2 Mean Corpuscular Hemoglobin Concent 33.3 Mean Corpuscular Volume 90.5 Mean Platelet Volume 7.9 Monocytes # 0.7 Monocytes % 8.2 Neutrophils # 6.0 Neutrophils % 69.7 Nucleated Red Blood Cells # 0.0 Nucleated Red Blood Cells % 0.0 Platelet Count 327 Potassium Level 4.6 Red Blood Count 5.10 Red Cell Distribution Width 14.2 Sodium Level 139 White Blood Count 8.7 C-Reactive Protein < 0.5 HIV (1&2) Antibody NEGATIVE Lactic Acid Level 1.9 Vancomycin Level Trough 12.6 Medications Medications Current Medications Acetaminophen (Tylenol Tab) 650 mg Q4H PRN PO PAIN AND OR ELEVATED TEMP; Start 09/26/16 at 00:00 Lorazepam (Ativan) 1 mg Q6H PRN PO ANXIETY Last administered on 09/27/16 10:29 ; Admin Dose 1 MG; Start 09/26/16 at 00:00 Hydromorphone HCl (Dilaudid) 0.5 mg Q4H PRN IV PAIN Last administered on 12:36; Admin Dose 0.5 MG; Start 09/26/16 at 00:00 Senna (Senokot) 2 tab BID PO Last administered on 09/27/16 08:16; Admin Dose 2 TAB; Start 09/26/16 at 00:00 Ziprasidone (Geodon) 80 mg BID PO Last administered on 09/27/16 08:16; Admin Dose 80 MG; Start 09/26/16 at 00:00 Quetiapine Fumarate (Seroquel) 200 mg HS PO Last administered on 09/26/16 22: 21; Admin Dose 200 MG; Start 09/26/16 at 00:30 Benazepril HCl (Lotensin) 40 mg BID PO Last administered on 09/27/16 08:33; Admin Dose 40 MG; Start 09/26/16 at 00:00 Oxycodone/ Acetaminophen 1 tab 1 tab Q4H PRN PO PAIN; Start 09/26/16 at 00:00 Imipenem/ Cilastatin Sodium 100 ml @ 166.667 mls/hr Q6 IVPB Last administered on 09/27/16 11:28; Admin Dose 166.667 MLS/HR; Start 09/26/16 at 02:00 Vancomycin HCl (Vancocin) 250 ml @ 125 mls/hr Q12H IVPB ; Start 09/28/16 at 02: 00 Nicotine (Nicoderm 21 Mg/ 24hr) 1 patch DAILY TRANSDERM ; Start 09/27/16 at 17: 00 CRISTÓBAL SMITH STAIN MAKER Sep 27, 2016 17:46
[2016-09-27] MEDS: NICOTINE (21 MG/24 HR) PATCH TRANSDERM SCH (18:02)
[2016-09-27 19:35] VITALS: BP 185/101; RESP 16
[2016-09-27] MEDS: QUETIAPINE 100 MG TAB PO SCH (20:35)
[2016-09-27 21:30] VITALS: BP 150/88
[2016-09-28] MEDS ORDERED: VANCOMYCIN 1 GM in NS 250 ML IVPB SCH (02:00)
[2016-09-28] MEDS: HYDROmorphONE 1 MG/ML SYG IV PRN (02:48)
[2016-09-28] MEDS: IMIPENEM-CILAST 500MG IV (PMX) 100 ML IVPB SCH (05:49)
[2016-09-28] MEDS: LORAZEPAM 1 MG TAB PO PRN (07:25)
[2016-09-28 07:35] VITALS: BP 180/118; RESP 18
[2016-09-28] MEDS: NICOTINE (21 MG/24 HR) PATCH TRANSDERM SCH (09:04)
[2016-09-28] MEDS: SENNA TAB PO SCH (09:04)
[2016-09-28] MEDS: ZIPRASIDONE 20 MG CAP PO SCH (09:05)
[2016-09-28] MEDS: BENAZEPRIL 40 MG TAB PO SCH (09:05)
--- NOTE | 2016-09-28 18:18 | DS ---
DATE OF ADMISSION: 09/25/2016 DATE OF DISCHARGE: 09/28/2016 The patient left against medical advice. DISCHARGE DIAGNOSES: 1. Likely L1-L2 osteomyelitis/diskitis. 2. Status post multiple lower back surgeries including extensive posterior L2- S1 melissa/screws at [facility]. 3. Hypertension. 4. Chronic obstructive pulmonary disease. 5. Bipolar disorder. 6. Recent exacerbation of chronic lower back pain. The patient was told to stay until I could arrange for home IV antibiotics including IV vancomycin and imipenem. However, the patient did not even want to stay for further treatment. REASON FOR ADMISSION: The patient is a 65-year-old female with history of COPD , hypertension, chronic lower back pain, and bipolar disorder. The patient is status post low back surgery x2 at [facility]. The last one was a couple of years ago. The patient recently was seen in my office due to acute low back pain and MRI was done as an outpatient which revealed possible disk space infection, diskitis and osteomyelitis of the lumbar spine. The patient was immediately asked to go to the ER. The patient was seen by Dr. Patterson from infectious disease standpoint and the patient was continued on IV vancomycin and imipenem. The patient's back pain was managed with IV Dilaudid and p.o. Percocet. A neurosurgery consult from Dr. Head was obtained. The patient also underwent CT lumbar spine which confirmed likely L1-L2 osteomyelitis/ diskitis. The patient was recommended to be transferred to [facility] for left leg lateral L1-L2 corpectomy/diskectomy with fusion. [facility] was not capable of handling that kind of surgery as per Dr. Head, who also spoke with patient's brother Dion. However, the patient today decided to leave against medical advice, did not even wait for me to arrange antibiotic. PHYSICAL EXAMINATION: GENERAL: The patient conscious, awake, alert. VITAL SIGNS: Temperature 98.6, pulse 100, respirations 18, blood pressure 180/ 118. HEENT: Conjunctivae and lids normal. Oropharynx clear. NECK: Supple. No mass, no thyromegaly. CHEST: Fairly clear. No use of accessory muscles. CARDIOVASCULAR: S1, S2 normal. No murmur, gallop, or rub. ABDOMEN: Soft, nondistended, nontender. Bowel sounds plus. EXTREMITIES: No leg edema. NEUROLOGIC: The patient is awake, alert, fairly oriented with no gross focal deficit. LABORATORY DATA: CBC was normal. Sodium 139, potassium 4.6, BUN 17, creatinine 0.8, glucose 96. Lactic acid 1.9. ASSESSMENT AND PLAN: I told her that she runs risk for ongoing spine infection which can lead to paralysis or even . She still wanted to leave AMA. I did speak with patient's psychologist, Dr. Amie Ye since patient has been getting psychotherapy by her as an outpatient and requested her to convince patient to either contact Dr. Head to reschedule the surgery or go to [facility], or at least convince her to come to my office tomorrow so that I can attempt to schedule her with IV antibiotic as an outpatient. Dictated By: GERALD MAX/CHRIS Conf#: [id number] DID#: [id number] MTDD
[2016-09-29 18:16] LABS: CRYPTOCOCCAL ANTIGEN - SOURCE Serum
== END 2016-09-28 10:47 | disposition left against medical advice (07) | DRG 540 ==
LOC: E/R 16:55 → PP2 20:35
PROVIDERS: ADMIT Internal Medicine; ATTEND Internal Medicine
DX: M46.27 Osteomyelitis of vertebra, lumbosacral region (principal); E87.1 Hypo-osmolality and hyponatremia; I10 Essential (primary) hypertension; Z98.890 Other specified postprocedural states; F31.9 Bipolar disorder, unspecified; J44.9 Chronic obstructive pulmonary disease, unspecified; M54.89 Other dorsalgia
CPT/HCPCS: 36415; 71010; 72131; 80048; 80053; 80202; 83605; 83690; 84145; 84439; 84443; 84481; 84484; 85025; 85610; 85651; 86140; 86641; 86703; 87040; 90686; 93005; 96374; 96375; J0743; J1170; J2270; J2405; J3370; J7030; J7040

== ENCOUNTER 2017-03-07 15:26 | Emergency (ER) | payer MEDICARE, OTHER ==
[~2017-03-07] VITALS: Ht 162.6 cm; Wt 80.0 kg
[~2017-03-07 15:26] MED LIST changes: -AMLO5TAB4 PO; -ASPI81TA3 PO; +BENA40TA41 PO; -CARI350T29 PO; -ESCI10TA PO; -LORA-444 PO; -QUET100T PO; +QUET200T27 PO; +TEMA30CA PO; +ZIPR80CA22 PO; -ZIPR80CA9 PO; -ZOLP5TAB6 PO
[2017-03-07 15:29] VITALS: Ht 162.6 cm; Wt 80.0 kg
--- NOTE | 2017-03-07 15:48 | ERA ---
ER Documentation Chief Complaint Date/Time DATE: 03/07/17 TIME: 15:48 Chief Complaint DEPRESSED STATES NEEDS HELP DENIES SI,HI HPI 66-year-old female with a history of depression, bipolar disease, chronic back pain status post multiple back surgeries, hypertension and COPD presents to the ED complaining of a several day history of worsening depression and wants her medications changed. Denies suicidal or homicidal ideations. No hallucinations or delusions. Otherwise asymptomatic. Denies abdominal pain, nausea, vomiting or diarrhea. No chest pain, palpitations or shortness of breath. No URI symptoms or cough. No headache, visual changes, weakness or numbness. No fevers or chills. ROS All systems reviewed and are negative except as per history of present illness. Medications Home Meds Active Scripts Oxycodone HCl/Acetaminophen (Percocet 5-325 mg Tablet) 1 Each Tablet, 1 EACH PO Q6, #20 TAB Prov:MARVIN MOORE 07/06/16 Furosemide* (Lasix*) 20 Mg Tab, 20 MG PO DAILY, #30 Prov:DESI SALCEDO NP 12/24/14 Reported Medications Lorazepam* (Ativan*) 0.5 Mg Tablet, 0.5 MG PO HS, #30 TAB 09/25/16 Ziprasidone* (Geodon*) 80 Mg Capsule, 80 MG PO QHS, CAP 09/25/16 Temazepam* (Temazepam*) 30 Mg Capsule, 30 MG PO HS Y for INSOMNIA, CAP 09/25/16 Benazepril Hcl* (Benazepril Hcl*) 40 Mg Tablet, 40 MG PO BID, #30 TAB 09/25/16 Quetiapine Fumarate* (Quetiapine Fumarate*) 200 Mg Tablet, 200 MG PO TID, TAB 09/25/16 Allergies Allergies: Coded Allergies: Sulfa (Sulfonamide Antibiotics) (Verified Allergy, Unknown, RASH, 09/25/16) erythromycin base (Verified Allergy, Unknown, 09/25/16) PMhx/Soc Reviewed in chart. As per HPI. History of Surgery: Yes (SPINAL SURGERY a yr ago, HYSTERECTOMY ) Anesthesia Reaction: No Hx Neurological Disorder: No Hx Respiratory Disorders: No Hx Cardiac Disorders: Yes (HTN) Hx Psychiatric Problems: Yes (anxiety, depression) Hx Miscellaneous Medical Probl: No Hx Alcohol Use: No Hx Substance Use: No Hx Tobacco Use: Yes FmHx Not relevant to presenting complaint. Physical Exam Vitals Vital Signs Date Time Temp Pulse Resp B/P Pulse Ox O2 Delivery O2 Flow Rate FiO2 03/07/17 15:29 97.8 80 18 146/84 93 Physical Exam Const: Alert, anxious. Head: Atraumatic Eyes: Normal Conjunctiva ENT: Normal External Ears, Nose and Mouth. Neck: Full range of motion. Nontender. Resp: Breath sounds equal and clear to auscultation bilaterally. No rales wheezes or rhonchi. Cardio: Regular rate and rhythm, no murmurs Abd: Soft, obese, non tender, non distended. Normal bowel sounds Skin: No petechiae or rashes Back: No midline or flank tenderness Ext: No cyanosis, or edema Neur: Awake and alert. No focal deficit observed. Ambulatory with a steady gait. Psych: Cooperative. Anxious. Goal oriented speech and thought. On direct questioning denies suicidal or homicidal ideations. Result Diagram: 03/07/17 1610 03/07/17 1610 Results 24 hrs Laboratory Tests Test 03/07/17 15:57 03/07/17 16:10 Urine Color COLORLESS Urine Clarity CLEAR Urine pH 6.0 Urine Specific [place] 1.002 Urine Ketones NEGATIVEmg/dL Urine Nitrite NEGATIVEmg/dL Urine Bilirubin NEGATIVEmg/dL Urine Urobilinogen NEGATIVEmg/dL Urine Leukocyte Esterase NEGATIVELeu/ul Urine Hemoglobin NEGATIVEmg/dL Urine Glucose NEGATIVEmg/dL Urine Total Protein NEGATIVEmg/dl Urine Opiates Screen Negative Urine Barbiturates Negative Urine Amphetamines Screen Negative Urine Benzodiazepines Screen Negative Urine Cocaine Screen Negative Urine Cannabinoids Negative White Blood Count 10.310^3/ul Red Blood Count 4.7210^6/ul Hemoglobin 13.8g/dl Hematocrit 40.4% Mean Corpuscular Volume 85.6fl Mean Corpuscular Hemoglobin 29.2pg Mean Corpuscular Hemoglobin Concent 34.2g/dl Red Cell Distribution Width 15.2% Platelet Count 79858^3/UL Mean Platelet Volume 9.1fl Neutrophils % 63.1% Lymphocytes % 24.6% Monocytes % 10.3% Eosinophils % 1.5% Basophils % 0.3% Nucleated Red Blood Cells % 0.0/100WBC Neutrophils # 6.510^3/ul Lymphocytes # 2.510^3/ul Monocytes # 1.110^3/ul Eosinophils # 0.210^3/ul Basophils # 0.010^3/ul Nucleated Red Blood Cells # 0.010^3/ul Sodium Level 125mmol/L Potassium Level 3.6mmol/L Chloride Level 93mmol/L Carbon Dioxide Level 27mmol/L Anion Gap 9 Blood Urea Nitrogen 16mg/dl Creatinine 0.93mg/dl Glucose Level 93mg/dl Calcium Level 9.0mg/dl Total Bilirubin 0.1mg/dl Direct Bilirubin 0.00mg/dl Indirect Bilirubin 0.1mg/dl Aspartate Amino Transf (AST/SGOT) 27IU/L Alanine Aminotransferase (ALT/SGPT) 40IU/L Alkaline Phosphatase 127IU/L Total Protein 7.3g/dl Albumin 4.4g/dl Globulin 2.90g/dl Albumin/Globulin Ratio 1.51 Salicylates Level < 1.0mg/dl Acetaminophen Level < 10.0ug/ml Ethyl Alcohol Level < 10.0mg/dl Procedures/MDM DOCUMENTS REVIEWED: ED nurse, prior ED, prior records MEDICAL DECISION MAKIN-year-old female with a history of depression, bipolar disease, chronic back pain status post multiple back surgeries, hypertension and COPD presents to the ED complaining of a several day history of worsening depression and wants her medications changed. On direct questioning she vehemently denies suicidal or homicidal ideations. Seen in the ED by social work please refer to her note. Tele-psychiatry evaluation requested , Dr Huber was available but patient was outside smoking a cigarette and now does not want to wait anymore. Hyponatremia with history of same possibly due to dehydration but may be due to SIADH from her medications. Patient does not want any IVs or further workup. As per her request she will be discharged home , given a taxi voucher but is encouraged to seek follow-up as soon as possible or return to the ED if she changes her mind. Contracted for safety. Counseled patient regarding diagnostic workup, diagnosis and need for followup. Understands to return to ED if symptoms recur, worsen or any other concerns. Departure Diagnosis: Primary Impression: Depression Qualified Code: F32.9 - Depression, unspecified depression type Additional Impression: Hyponatremia Condition: Stable (With urgent outpatient follow-up as counseled) JOHANA MEADOWS MD Mar 07, 2017 15:48
[2017-03-07 16:17] LABS: ADD SCAN DIFF NO
[2017-03-07 16:20] LABS: BASOPHILS % 0.3 % (0.0-2.0); EOSINOPHILS # 0.2 10^3/ul (0.0-0.5); EOSINOPHILS % 1.5 % (0.0-7.0); HEMATOCRIT 40.4 % (37.0-47.0); HEMOGLOBIN 13.8 g/dl (12.0-16.0); LYMPHOCYTES # 2.5 10^3/ul (0.8-2.9); LYMPHOCYTES % 24.6 % (15.0-51.0); MEAN CORPUSCULAR HEMOGLOBIN 29.2 pg (29.0-33.0); MEAN CORPUSCULAR HGB CONC 34.2 g/dl (32.0-37.0); MEAN CORPUSCULAR VOLUME 85.6 fl (82.0-101.0); MEAN PLATELET VOLUME 9.1 fl (7.4-10.4); MONOCYTE # 1.1 10^3/ul (0.3-0.9); MONOCYTES % 10.3 % (0.0-11.0); NEUTROPHIL # 6.5 10^3/ul (1.6-7.5); NEUTROPHILS % 63.1 % (39.0-77.0); PLATELET COUNT 408 10^3/UL (140-415); RED BLOOD COUNT 4.72 10^6/ul (4.20-5.40); RED CELL DISTRIBUTION WIDTH 15.2 % (11.5-14.5); WHITE BLOOD COUNT 10.3 10^3/ul (4.8-10.8)
[2017-03-07 16:32] LABS: ADD UMIC NO; UR ASCORBIC ACID NEGATIVE (NEGATIVE); UR BILIRUBIN (Dip) NEGATIVE (NEGATIVE); UR BLOOD (Dip) NEGATIVE (NEGATIVE); UR CLARITY CLEAR (CLEAR); UR COLOR COLORLESS (YELLOW); UR GLUCOSE (Dip) NEGATIVE (NEGATIVE); UR KETONES (Dip) NEGATIVE (NEGATIVE); UR LEUKOCYTE ESTERASE (Dip) NEGATIVE Leu/ul (NEGATIVE); UR NITRITE (Dip) NEGATIVE (NEGATIVE); UR SPECIFIC GRAVITY (Dip) 1.002 (1.003-1.030); UR TOTAL PROTEIN (Dip) NEGATIVE (NEGATIVE); UR UROBILINOGEN (Dip) NEGATIVE (NEGATIVE)
[2017-03-07 16:39] LABS: ALANINE AMINOTRANSFERASE 40 IU/L (13-69); ALBUMIN 4.4 g/dl (3.3-4.9); ALBUMIN/GLOBULIN RATIO 1.51; ALKALINE PHOSPHATASE 127 IU/L (42-121); ANION GAP 9 (8-16); ASPARTATE AMINO TRANSFERASE 27 IU/L (15-46); BILIRUBIN,INDIRECT 0.1 mg/dl (0-1.1); BILIRUBIN,TOTAL 0.1 mg/dl (0.2-1.3); BLOOD UREA NITROGEN 16 mg/dl (7-20); CARBON DIOXIDE 27 mmol/L (21-31); CHLORIDE 93 mmol/L (97-110); CREATININE 0.93 mg/dl (0.44-1.00); GLUCOSE 93 mg/dl (70-220); POTASSIUM 3.6 mmol/L (3.5-5.1); SODIUM 125 mmol/L (135-144); TOTAL PROTEIN 7.3 g/dl (6.1-8.1)
[2017-03-07 16:41] LABS: ACETAMINOPHEN < 10.0 ug/ml (10.0-30.0); ETHANOL < 10.0 mg/dl; SALICYLATE < 1.0 mg/dl (5.0-30.0)
[2017-03-07 16:46] LABS: BARBITURATES Negative (NEGATIVE); BENZODIAZEPINES Negative (NEGATIVE); CANNABINOIDS Negative (NEGATIVE); COCAINE Negative (NEGATIVE); OPIATES Negative (NEGATIVE)
[2017-03-07 20:14] VITALS: BP 129/85; PULSE 78; RESP 18; TEMP 97.8
== END 2017-03-07 19:40 | disposition home or self-care (01) ==
LOC: E/R 15:26
DX: F32.9 Major depressive disorder, single episode, unspecified (principal); E87.1 Hypo-osmolality and hyponatremia; I10 Essential (primary) hypertension; J44.9 Chronic obstructive pulmonary disease, unspecified
CPT/HCPCS: 80053; 80306; 80307; 81003; 85025; 99284

== ENCOUNTER 2017-10-12 16:25 | Observation (INO) | END 2017-10-13 16:30 | disposition left against medical advice (07) ==

== ENCOUNTER 2017-10-14 13:33 | Observation (INO) | END 2017-10-14 19:01 | disposition left against medical advice (07) ==

== ENCOUNTER 2017-10-22 21:25 | Inpatient (IN) | END 2017-10-22 22:45 | disposition left against medical advice (07) | DRG 93 ==

== ENCOUNTER 2017-10-26 15:18 | Inpatient (IN) | END 2017-10-26 18:20 | disposition home health service (06) | DRG 556 ==

== ENCOUNTER 2017-11-09 17:12 | Emergency (ER) | END 2017-11-09 21:56 | disposition left against medical advice (07) ==

== ENCOUNTER 2018-04-11 10:48 | Emergency (ER) | END 2018-04-11 18:45 | disposition home or self-care (01) ==

== ENCOUNTER 2018-04-22 10:25 | Emergency (ER) | END 2018-04-22 12:52 | disposition left against medical advice (07) ==

== ENCOUNTER → 2018-05-17 | Outpatient (CLI) | END | disposition home or self-care (01) ==

== ENCOUNTER 2018-05-26 09:30 | Emergency (ER) | END 2018-05-26 17:06 | disposition home or self-care (01) ==